=== PATIENT | male | born 1975 | race African-American/Black ===

== ENCOUNTER 2018-03-02 07:07 | Emergency (ER) | payer MEDICAID ==
[~2018-03-02] VITALS: Ht 172.7 cm; Wt 83.6 kg
[2018-03-02] MEDS ORDERED: psych med PO (07:49)
[2018-03-02 08:11] VITALS: BP 139/81
== END 2018-03-02 08:39 | disposition left against medical advice (07) ==
LOC: EMS 07:11
DX: L03.011 Cellulitis of right finger (principal); F17.210 Nicotine dependence, cigarettes, uncomplicated
CPT/HCPCS: 99283

== ENCOUNTER 2020-07-21 09:49 | Emergency (ER) | payer MEDICAID, OTHER ==
[~2020-07-21] VITALS: Ht 172.7 cm; Wt 77.3 kg
[~2020-07-21 09:49] MED LIST: psych med PO
[2020-07-21 09:55] VITALS: BP 100/59
== END 2020-07-21 10:54 | disposition home or self-care (01) ==
LOC: EMS 09:50
DX: M79.674 Pain in right toe(s) (principal); M79.675 Pain in left toe(s); B35.1 Tinea unguium; F20.9 Schizophrenia, unspecified; F17.210 Nicotine dependence, cigarettes, uncomplicated
CPT/HCPCS: Z7502